=== PATIENT | male | born 2000 | race Caucasian/White ===

== ENCOUNTER 2018-10-23 05:42 | Day surgery (SDC) | payer BC, OTHER ==
[~2018-10-23] VITALS: Ht 190.5 cm; Wt 70.3 kg
[~2018-10-23 05:42] MED LIST: IBUPROFEN 800800 M1 PO
[2018-10-23 09:00] VITALS: BP 116/74
[2018-10-23] MEDS ORDERED: HYDROCODON-ACE1 EAC7 PO (10:20)
--- NOTE | 2018-10-27 07:37 | O ---
[facility] [place] [address] OPERATIVE REPORT Name: EARLENEMAI Anushka [facility] [id number] Admission: 10/23/18 ������������������ Attend Phys: Bryan Collins MD Discharge: 10/23/18 ������������������ Date of : [birth year] Report #: [id number] THIS REPORT FOR: //name// CC: Kena Collins DATE OF SERVICE: 10/23/2018 PREOPERATIVE DIAGNOSIS: Painful hardware, left clavicle. POSTOPERATIVE DIAGNOSIS: Painful hardware, left clavicle. PROCEDURE: Hardware removal, left clavicle. SURGEON: Bryan Collins M.D. REPAIR MANAGER: Cara Reese PA-C. ANESTHESIA: LMA. ESTIMATED BLOOD LOSS: 10 mL. COMPLICATIONS: None. SPECIMENS: None. CONDITION UPON LEAVING THE OPERATING ROOM: Stable. INDICATIONS FOR PROCEDURE: The patient is a 18-year-old gentleman who is about 3 years out from an ORIF of the left clavicle. He has had continued hardware pain over the clavicular plate and after discussion with him, he elected for hardware removal. DESCRIPTION OF PROCEDURE: Risks, benefits, alternatives and complications were discussed in detail with the patient including, but not limited to risk of anesthesia; risk of damage to nerves, arteries or blood vessels; risk for infection or bleeding; risk for refracture and need for reoperation. Informed consent was obtained from the patient. Left shoulder was appropriately marked in the preoperative holding area. He was brought to the operating room and placed in supine position on the operating room table. LMA anesthesia was induced without complication. Left clavicle and shoulder were prepped and draped in normal sterile fashion. Timeout was performed, properly identifying the patient and procedure as well as the instrumentation. All in the operating room were in agreement. The previous scar was then excised with a 15 blade and deep dissection was taken down to the clavicle in the clavicular plate, which was easily palpable with Bovie cautery. The bone overgrowth over the plate was [address] [address] OPERATIVE REPORT Name: EARLENEMAI A Room #: DEP [facility] Marycarmen#: [id number] Admission: 10/23/18 ������������������ Attend Phys: Bryan Collins MD Discharge: 10/23/18 ������������������ Date of : [birth year] Report #: [id number] then removed with a Parson elevator and 6 screws in the plate were removed with a combination of screwdriver as well as osteotomes. The wound was thoroughly irrigated. Fluoroscopic imaging was brought in to verify adequate hardware removal as well as to verify that no refracture had taken place. After this, the deep tissue was closed with 0 Vicryl, skin was closed with 2-0 Vicryl and 3-0 Monocryl. Dermabond and a light dressing were applied. The patient tolerated this procedure well and went to the recovery room under care of Anesthesia postoperatively. ��������������������������������������������� <ELECTRONICALLY SIGNED> ���������������������������������������� By: Bryan Collins MD ��������������������������������������������� 10/27/18 0737 [id number] [id number] Bryan Collins MD /yamel
== END 2018-10-23 11:45 | disposition home or self-care (01) ==
LOC: OR → TBA 05:43 → OR 09:09
DX: T84.84XA Pain due to internal orthopedic prosthetic devices, implants and grafts, initial encounter (principal); F17.210 Nicotine dependence, cigarettes, uncomplicated; Z88.1 Allergy status to other antibiotic agents; Z88.8 Allergy status to other drugs, medicaments and biological substances; Z98.890 Other specified postprocedural states; Y83.8 Other surgical procedures as the cause of abnormal reaction of the patient, or of later complication, without mention of misadventure at the time of the procedure; Y92.89 Other specified places as the place of occurrence of the external cause
CPT/HCPCS: 50010; 50101; 50386; 50403; 54118; 56527; 56528; 62110; 62900; 70005